=== PATIENT | female | born 1970 | race Caucasian/White ===

== ENCOUNTER 2019-01-25 22:31 | Emergency (ER) | payer OTHER ==
[~2019-01-25] VITALS: Ht 157.5 cm; Wt 77.3 kg
[2019-01-25 22:39] VITALS: TEMP 98.9
[2019-01-25] MEDS ORDERED: INDERAL 20MG20 MG PO (22:42)
[2019-01-25] MEDS ORDERED: WELLBUTRIN 100100 MG PO (22:42)
[2019-01-25] MEDS ORDERED: PRAVACHOL10 MG PO (22:42)
[2019-01-25 23:46] LABS: BASO # 0.1 (0.0-0.2); BASO % 0.5 % (0.0-2.0); EOS # 0.2 (0.0-0.7); EOS % 2.1 % (0-4.0); GRAN # 4.9 (1.4-6.5); GRAN % 51.6 % (42.2-75.2); HEMATOCRIT 39.4 % (37.0-47.0); HEMOGLOBIN 12.9 g/dl (12.5-16.0); LYMPH # 3.6 (1.2-3.4); LYMPH % 38.2 % (20.0-51.0); MEAN CELL VOLUME 94 fl (80.0-100.0); MEAN CORPUSCULAR HEMOGLOBIN 31 pg (27.0-31.0); MEAN CORPUSCULAR HGB CONC 33 g/dl (33.0-37.0); MEAN PLATELET VOLUME 10.1 fl (7.4-10.4); MONO # 0.7 (0.1-0.6); MONO % 7.2 % (1.7-9.3); PLATELET COUNT 249 K/mm3 (130-400); REDCELL DISTRIBUTION WIDTH-CV 12.7 % (11.5-14.5)
[2019-01-25 23:58] LABS: ALBUMIN 4.4 gm/dL (3.5-5.0); BILIRUBIN,TOTAL 0.2 mg/dL (0.0-1.0); CALCIUM 9.7 mg/dL (8.4-10.2); CREATININE, serum 1.27 (0.52-1.25); POTASSIUM 3.9 mmol/L (3.4-5.0); TOTAL PROTEIN 7.4 gm/dL (6.4-8.2)
[2019-01-26 00:57] VITALS: BP 135/66; PULSE 62
== END 2019-01-26 00:57 | disposition home or self-care (01) ==
LOC: COL.ER 22:31
PROVIDERS: Emergency Medicine
DX: T43.295A Adverse effect of other antidepressants, initial encounter (principal); R51 Headache; F32.9 Major depressive disorder, single episode, unspecified; F41.9 Anxiety disorder, unspecified; E78.5 Hyperlipidemia, unspecified; Z98.51 Tubal ligation status; Z98.890 Other specified postprocedural states

== ENCOUNTER 2019-08-22 12:26 | Emergency (ER) | payer OTHER ==
[~2019-08-22] VITALS: Ht 157.5 cm; Wt 75.9 kg
[~2019-08-22 12:26] MED LIST: INDERAL 20MG20 MG PO; PRAVACHOL10 MG PO; WELLBUTRIN 100100 MG PO
[2019-08-22 12:35] VITALS: TEMP 97.6
[2019-08-22 13:18] LABS: COLLECTION METHOD CLEAN CATCH
[2019-08-22 13:51] LABS: MUCOUS Present /lpf; PH 6 (5-8); URINE APPEARANCE Cloudy; URINE BACTERIA None Seen /hpf; URINE BILIRUBIN Negative (NEGATIVE); URINE BLOOD 3+ (NEGATIVE); URINE COLOR Amber; URINE GLUCOSE Negative (NEGATIVE); URINE KETONE Negative (NEGATIVE); URINE LEUKOCYTE ESTERASE Negative (NEGATIVE); URINE NITRATE Negative (NEGATIVE); URINE PROTEIN(semi-quant) 2+ (NEGATIVE); URINE RBC >50 /hpf; URINE UROBILINOGEN Negative (NEGATIVE)
[2019-08-22] MEDS ORDERED: NORCO 325 MG-51 TAB PO (14:14)
[2019-08-22] MEDS ORDERED: CEFTIN500 MG PO (14:14)
[2019-08-22 14:45] VITALS: BP 145/88; PULSE 55
== END 2019-08-22 14:42 | disposition home or self-care (01) ==
LOC: COL.ER 12:26
PROVIDERS: Nurse Practitioner
DX: N39.0 Urinary tract infection, site not specified (principal)
CPT/HCPCS: J2270; J2405; J7030

== ENCOUNTER → 2019-08-28 | Outpatient (CLI) | payer OTHER ==
[~2019-08-28] MED LIST changes: +CEFTIN500 MG PO; +NORCO 325 MG-51 TAB PO
== END ==
LOC: COL.RAD 10:30
DX: E27.9 Disorder of adrenal gland, unspecified (principal); N20.0 Calculus of kidney; I25.10 Atherosclerotic heart disease of native coronary artery without angina pectoris; I70.0 Atherosclerosis of aorta
CPT/HCPCS: Q9967

== ENCOUNTER 2019-09-24 10:00 | Outpatient (RCR) | payer OTHER | END 2019-12-17 | disposition home or self-care (01) | LOC: WSPT | DX: M54.5 Low back pain (principal) ==

== ENCOUNTER 2021-06-23 12:00 | Day surgery (SDC) | payer OTHER ==
[2021-06-23] VITALS (9 sets, daily range): BP systolic 110–154; BP diastolic 61–79; PULSE 51–66; TEMP 98
[~2021-06-23] VITALS: Ht 157.6 cm; Wt 70.0 kg
[2021-06-23 12:56] LABS: HEMOGLOBIN 11.6 g/dl (12.5-16.0); MEAN CELL VOLUME 91 fl (80.0-100.0); MEAN CORPUSCULAR HEMOGLOBIN 30 pg (27-31); MEAN CORPUSCULAR HGB CONC 33 g/dl (33.0-37.0); MEAN PLATELET VOLUME 9.4 fl (7.4-10.4); PLATELET COUNT 200 K/mm3 (130-400); RED BLOOD COUNT 3.83 M/mm3 (4.10-5.30); REDCELL DISTRIBUTION WIDTH-CV 12.4 % (11.5-14.5)
[2021-06-23] MEDS ORDERED: PRILOSEC 20MG20 MG PO (12:57)
[2021-06-23] MEDS ORDERED: ZESTRIL 10MG10 MG PO (12:57)
[2021-06-23] MEDS ORDERED: DITROPAN 5MG TAB5 MG PO (12:58)
[2021-06-23] MEDS ORDERED: ASPIRIN E.C. 8181 MG PO (12:58)
[2021-06-23] MEDS ORDERED: LIPITOR 40MG TA40 MG PO (12:59)
[2021-06-23 13:00] LABS: HEMATOCRIT 34.7 % (37.0-47.0)
[2021-06-23] MEDS ORDERED: FEOSOL45 MG (13:00)
[2021-06-23] MEDS ORDERED: METAMUCIL MUL0.52 GM PO (13:01)
[2021-06-23] MEDS ORDERED: PROBIOTIC ACID1 EAC3 PO (13:01)
[2021-06-23] MEDS ORDERED: VITAMIND3 5000 PO (13:02)
[2021-06-23 13:03] LABS: PROTHROMBIN TIME 11.4 SECONDS (9.7-12.8)
[2021-06-23 13:14] LABS: CREATININE, serum 0.66 mg/dL (0.57-1.11)
--- NOTE | 2021-06-23 14:14 | NUR ---
See merge for all medication, assessment, intervention, and vital signs.
--- NOTE | 2021-06-23 14:40 | NUR ---
PT TO [facility] VIA BED FROM SUBACUTE NURSE, WITH PT, PT AWAKE AND ALERT. HAS NO C/O, HOB ELEVATED, CALL LIGHT IN REACH. TAKES WATER
--- NOTE | 2021-06-23 15:30 | NUR ---
pt watches tv, has no c/o, lunch ordered and delivered. No changes in assessment
--- NOTE | 2021-06-23 16:40 | NUR ---
started release of air from band, 2cc at a time over 20 min with no bleeding or swelling noted. bandaid over site with coban. Reviewed discharge inst. with pt and on care of site, activity, and precautions today, also pt will check with office for follow up appt in 2 weeks at office. with verbal understanding.
--- NOTE | 2021-06-23 17:10 | NUR ---
pt up to b/r to void, gait steady. iv d'cd intact. pt up in room dressed, discharged via w/c to car with at 1715
== END 2021-06-23 17:25 | disposition home or self-care (01) ==
LOC: COL.CAR 12:00
PROVIDERS: Internal Medicine Cardiovascular Disease
DX: R07.9 Chest pain, unspecified (principal); I10 Essential (primary) hypertension; E78.5 Hyperlipidemia, unspecified; R07.89 Other chest pain
CPT/HCPCS: J1644; J2250; J3010; J7030

== ENCOUNTER → 2021-11-13 | Outpatient (CLI) | payer OTHER ==
[~2021-11-13] MED LIST changes: +ASPIRIN E.C. 8181 MG PO; +DITROPAN 5MG TAB5 MG PO; +FEOSOL45 MG; +LIPITOR 40MG TA40 MG PO; +METAMUCIL MUL0.52 GM PO; +PRILOSEC 20MG20 MG PO; +PROBIOTIC ACID1 EAC3 PO; +VITAMIND3 5000 PO; +ZESTRIL 10MG10 MG PO
== END ==
LOC: COL.RAD 14:32
DX: R42 Dizziness and giddiness (principal)
CPT/HCPCS: Q9967